=== PATIENT | female | born 1955 | race Caucasian/White ===

== ENCOUNTER 2019-03-03 08:50 | Emergency (ER) | payer OTHER ==
[~2019-03-03] VITALS: Ht 162.6 cm; Wt 83.9 kg
[2019-03-03 09:02] VITALS: Ht 162.6 cm; Wt 83.9 kg
[2019-03-03 12:36] VITALS: BP 120/50
== END 2019-03-03 12:36 | disposition home or self-care (01) ==
LOC: ED 08:50
DX: M54.16 Radiculopathy, lumbar region (principal); Z90.49 Acquired absence of other specified parts of digestive tract; Z90.710 Acquired absence of both cervix and uterus; Z88.6 Allergy status to analgesic agent; Z88.5 Allergy status to narcotic agent
CPT/HCPCS: J1100; J1885